=== PATIENT | female | born 1950 | race Native Hawaiian/Other Pacific Islander ===

== ENCOUNTER 2016-10-16 18:42 | Emergency (ER) | payer OTHER ==
[~2016-10-16] VITALS: Ht 157.5 cm; Wt 59.0 kg
[~2016-10-16 18:42] MED LIST: GLIM4TAB PO; JANUMET1 TAB PO; LEVO0.0218 PO; LYRICA150 MG PO; NEXIUM40 M1 PO; VENLAFAXINE75 M2 PO; VIGAMOX0.5 % OP; ZESTRIL40 MG OR
[2016-10-16 21:32] VITALS: BP 148/80; TEMP 98
== END 2016-10-16 21:32 | disposition home or self-care (01) ==
LOC: ED 18:42
PROC: 3E1CX8Z Irrigation of Eye using Irrigating Substance (ICD-10-PCS; principal; 2016-10-16)
DX: S05.02XA Injury of conjunctiva and corneal abrasion without foreign body, left eye, initial encounter (principal)
CPT/HCPCS: 99283; J1170; J2405

== ENCOUNTER 2017-06-03 15:42 | Emergency (ER) | payer OTHER ==
[~2017-06-03] VITALS: Ht 154.9 cm; Wt 58.1 kg
[2017-06-03 15:48] VITALS: TEMP 98.5
[2017-06-03 16:30] VITALS: BP 149/64
== END 2017-06-03 16:07 | disposition home or self-care (01) ==
LOC: ED 15:42
DX: K04.7 Periapical abscess without sinus (principal); R68.84 Jaw pain
CPT/HCPCS: 96372; 99282; J0696

== ENCOUNTER 2017-06-25 12:50 | Outpatient (CLI) | payer OTHER | END 2017-06-25 14:20 | disposition home or self-care (01) | LOC: MAMMO 12:50 | DX: N64.4 Mastodynia (principal) ==

== ENCOUNTER 2017-07-09 15:27 | Outpatient (CLI) | payer OTHER | END 2017-07-09 16:30 | disposition home or self-care (01) | LOC: RAD 15:27 | DX: R07.82 Intercostal pain (principal) ==

== ENCOUNTER 2017-10-12 10:47 | Emergency (ER) | payer OTHER ==
[~2017-10-12] VITALS: Ht 152.4 cm; Wt 58.1 kg
[2017-10-12 10:51] VITALS: TEMP 97.2
[2017-10-12 11:34] LABS: PLATELET COUNT 277 K/uL (152-353)
[2017-10-12 11:38] LABS: POTASSIUM 4.3 mmol/L (3.6-5.2); SODIUM 135 mmol/L (136-145)
[2017-10-12 11:45] LABS: PARTIAL THROMBOPLASTIN TIME 25.9 SECONDS (24.5-33.6)
[2017-10-12 14:19] VITALS: BP 151/76
== END 2017-10-12 14:19 | disposition home or self-care (01) ==
LOC: ED 10:47
DX: R07.89 Other chest pain (principal); K02.9 Dental caries, unspecified; T78.3XXA Angioneurotic edema, initial encounter
CPT/HCPCS: 36415; 80053; 82550; 84484; 85027; 85610; 85730; 93005; 96365; 96375; 99284; J0696; J1885

== ENCOUNTER 2017-10-26 19:10 | Inpatient (IN) | payer OTHER ==
[~2017-10-26] VITALS: Ht 152.4 cm; Wt 58.5 kg
[2017-10-26 19:20] VITALS: BP 138/67; TEMP 98.2
[2017-10-26] MEDS ORDERED: HYDR-3182 PO (19:29)
[2017-10-26] MEDS ORDERED: CELEXA10 MG PO (19:30)
[2017-10-26] MEDS ORDERED: NEURONTIN 100M100 MG PO (19:31)
[2017-10-26] MEDS ORDERED: INVOKANA100 MG PO (19:31)
[2017-10-26] MEDS ORDERED: TRAM50TA PO (19:32)
[2017-10-26 21:16] LABS: PLATELET COUNT 301 K/uL (152-353)
[2017-10-26 21:22] LABS: POTASSIUM 4.4 mmol/L (3.6-5.2)
[2017-10-26 23:14] VITALS: BP 166/77; TEMP 98.4
[2017-10-27] VITALS (7 sets, daily range): BP systolic 122–162; BP diastolic 66–87; TEMP 98–98.9; Ht 152.4 cm; Wt 58.5 kg
[2017-10-27 05:13] LABS: PLATELET COUNT 273 K/uL (152-353)
[2017-10-27 05:51] LABS: POTASSIUM 4.1 mmol/L (3.6-5.2)
[2017-10-28 04:00] VITALS: BP 155/79; TEMP 97.9
[2017-10-28 05:55] LABS: POTASSIUM 4.1 mmol/L (3.6-5.2)
[2017-10-28 06:09] LABS: PLATELET COUNT 293 K/uL (152-353)
[2017-10-28 08:00] VITALS: BP 155/81; TEMP 97.7
[2017-10-28 12:00] VITALS: BP 162/80; TEMP 97.9
[2017-10-28 16:00] VITALS: BP 153/76; TEMP 98.7
[2017-10-28 20:00] VITALS: BP 158/71; TEMP 99.2
[2017-10-29] VITALS: BP 167/73; TEMP 98.8
[2017-10-29 04:00] VITALS: BP 155/69; TEMP 98
[2017-10-29 07:39] VITALS: BP 171/77; TEMP 98.1
--- NOTE | 2017-10-29 10:57 | NUR ---
1035 PT LEFT WITH . NO CO AT THIS TIME. PT TEVIN Leahy COMPLTED ON LEVIMIR PEN. PT VERBALZUED UNDESTANDING. WILL CON'T TO MIQUELTR
== END 2017-10-29 10:40 | disposition home or self-care (01) | DRG 603 ==
LOC: ED 19:10 → MED/SURG 22:50
PROVIDERS: Family Medicine; ADMIT Specialist
DX: L03.116 Cellulitis of left lower limb (principal); E11.65 Type 2 diabetes mellitus with hyperglycemia; N28.9 Disorder of kidney and ureter, unspecified; R39.2 Extrarenal uremia; I10 Essential (primary) hypertension; F41.8 Other specified anxiety disorders; E03.8 Other specified hypothyroidism; K21.9 Gastro-esophageal reflux disease without esophagitis; B07.0 Plantar wart
CPT/HCPCS: 36415; 80053; 81000; 81002; 82948; 83605; 85027; 85651; 87040; 87205; 96365; 96366; 96367; 96372; 99284; J1650; J1815; J2543; J3490

== ENCOUNTER 2018-01-16 08:42 | Outpatient (CLI) | payer OTHER ==
[~2018-01-16 08:42] MED LIST changes: +CELEXA10 MG PO; +HYDR-3182 PO; +INVOKANA100 MG PO; +NEURONTIN 100M100 MG PO; +TRAM50TA PO
[2018-01-16 09:07] LABS: PLATELET COUNT 296 K/uL (152-353)
[2018-01-16 10:10] LABS: POTASSIUM 4.1 mmol/L (3.6-5.2)
== END 2018-01-16 23:31 | disposition home or self-care (01) ==
LOC: LABW 08:42
PROVIDERS: Physician Assistant
DX: E03.9 Hypothyroidism, unspecified (principal); E11.9 Type 2 diabetes mellitus without complications; I10 Essential (primary) hypertension
CPT/HCPCS: 36415; 80053; 80061; 83036; 84439; 84443; 85027

== ENCOUNTER 2019-01-02 13:53 | Outpatient (CLI) | payer OTHER ==
[2019-01-02 14:10] LABS: POTASSIUM 4.2 mmol/L (3.6-5.2)
[2019-01-02 14:12] LABS: PLATELET COUNT 307 K/uL (152-353)
== END 2019-01-02 19:45 | disposition home or self-care (01) ==
LOC: LAB 13:53
PROVIDERS: Physician Assistant
DX: E11.40 Type 2 diabetes mellitus with diabetic neuropathy, unspecified (principal); Z79.4 Long term (current) use of insulin; R35.8 Other polyuria; E55.9 Vitamin D deficiency, unspecified; E53.8 Deficiency of other specified B group vitamins; E03.8 Other specified hypothyroidism
CPT/HCPCS: 80053; 80061; 82306; 82607; 83735; 84439; 84443; 85027

== ENCOUNTER 2019-01-20 11:07 | Outpatient (CLI) | payer OTHER | END 2019-01-20 23:41 | disposition home or self-care (01) | LOC: RAD 11:07 | DX: E11.40 Type 2 diabetes mellitus with diabetic neuropathy, unspecified (principal); M54.2 Cervicalgia ==

== ENCOUNTER 2019-05-01 03:10 | Emergency (ER) | payer OTHER ==
[~2019-05-01] VITALS: Ht 152.4 cm; Wt 59.4 kg
[2019-05-01 05:17] VITALS: BP 184/82; TEMP 97.9
== END 2019-05-01 05:17 | disposition home or self-care (01) ==
LOC: ED 03:10
DX: S20.211A Contusion of right front wall of thorax, initial encounter (principal); W18.39XA Other fall on same level, initial encounter; Y92.89 Other specified places as the place of occurrence of the external cause
CPT/HCPCS: 96372; 99283; J1885

== ENCOUNTER 2020-02-24 18:03 | Emergency (ER) | payer OTHER ==
[~2020-02-24] VITALS: Ht 152.4 cm; Wt 58.1 kg
[2020-02-24 19:02] LABS: PLATELET COUNT 286 K/uL (152-353); POTASSIUM 4.6 mmol/L (3.6-5.2); SODIUM 142 mmol/L (136-145)
[2020-02-24 21:30] VITALS: BP 150/75; TEMP 98.6
== END 2020-02-24 21:30 | disposition still patient (30) ==
LOC: ED 18:03
PROVIDERS: Family Medicine
DX: S00.03XA Contusion of scalp, initial encounter (principal); S16.1XXA Strain of muscle, fascia and tendon at neck level, initial encounter; N39.0 Urinary tract infection, site not specified; W10.8XXA Fall (on) (from) other stairs and steps, initial encounter; Y92.511 Restaurant or cafe as the place of occurrence of the external cause
CPT/HCPCS: 36415; 80053; 81000; 84484; 85027; 87086; 87088; 93005; 96365; 96375; 99284; J0696; J2405

== ENCOUNTER 2020-10-04 08:54 | Outpatient (CLI) | payer OTHER ==
[2020-10-04 09:12] LABS: PLATELET COUNT 285 K/uL (152-353)
[2020-10-04 09:52] LABS: POTASSIUM 4.4 mmol/L (3.6-5.2)
== END 2020-10-04 22:10 | disposition home or self-care (01) ==
LOC: LABW 08:54
PROVIDERS: ATTEND Internal Medicine
DX: E11.9 Type 2 diabetes mellitus without complications (principal)
CPT/HCPCS: 36415; 80053; 80061; 81000; 82043; 83036; 84439; 84443; 85027

== ENCOUNTER 2021-02-15 17:03 | Outpatient (CLI) | payer OTHER | END 2021-02-15 20:42 | disposition home or self-care (01) | LOC: RAD 17:03 | PROVIDERS: ATTEND Internal Medicine | DX: R07.89 Other chest pain (principal) ==

== ENCOUNTER 2021-02-16 08:56 | Outpatient (CLI) | payer OTHER ==
[2021-02-16 09:27] LABS: PLATELET COUNT 309 K/uL (152-353)
[2021-02-16 09:38] LABS: POTASSIUM 3.7 mmol/L (3.6-5.2)
== END 2021-02-16 23:29 | disposition home or self-care (01) ==
LOC: LABW 08:56
PROVIDERS: ATTEND Internal Medicine
DX: E11.9 Type 2 diabetes mellitus without complications (principal); R82.998 Other abnormal findings in urine
CPT/HCPCS: 36415; 80053; 80061; 81000; 82043; 82570; 83036; 84439; 84443; 85027; 87077; 87086; 87088; 87186

== ENCOUNTER 2021-09-23 15:44 | Outpatient (CLI) | payer OTHER ==
[2021-09-23 18:30] LABS: PLATELET COUNT 323 K/uL (152-353)
[2021-09-23 18:49] LABS: POTASSIUM 4.1 mmol/L (3.6-5.2)
== END 2021-09-23 20:07 | disposition home or self-care (01) ==
LOC: LAB 15:44
PROVIDERS: ATTEND Internal Medicine
DX: E11.9 Type 2 diabetes mellitus without complications (principal)
CPT/HCPCS: 80053; 80061; 83036; 84439; 84443; 85027

== ENCOUNTER 2021-12-29 17:55 | Emergency (ER) | payer OTHER ==
[~2021-12-29] VITALS: Ht 152.4 cm; Wt 54.9 kg
[2021-12-29 19:10] VITALS: BP 123/71; TEMP 97.9
== END 2021-12-29 19:15 | disposition home or self-care (01) ==
LOC: ED 17:55
DX: M54.2 Cervicalgia (principal); R51.9 Headache, unspecified; W01.198A Fall on same level from slipping, tripping and stumbling with subsequent striking against other object, initial encounter; Y92.098 Other place in other non-institutional residence as the place of occurrence of the external cause
CPT/HCPCS: 99283

== ENCOUNTER 2022-02-13 09:06 | Outpatient (CLI) | payer OTHER ==
[2022-02-13 09:35] LABS: POTASSIUM 3.9 mmol/L (3.6-5.2)
== END 2022-02-13 19:09 | disposition home or self-care (01) ==
LOC: CT 09:06
PROVIDERS: ATTEND Internal Medicine
DX: E11.9 Type 2 diabetes mellitus without complications (principal); R10.9 Unspecified abdominal pain
CPT/HCPCS: 36415; 80053; 80061; 83036; Q9963

== ENCOUNTER 2022-04-06 10:35 | Outpatient (CLI) | payer OTHER | END 2022-04-06 20:51 | disposition home or self-care (01) | LOC: RAD 10:35 | PROVIDERS: ATTEND Internal Medicine | DX: R09.1 Pleurisy (principal) ==

== ENCOUNTER 2022-06-12 15:21 | Outpatient (CLI) | payer OTHER | END 2022-06-12 20:32 | disposition home or self-care (01) | LOC: MAMMO 15:21 | PROVIDERS: ATTEND Internal Medicine | DX: M81.0 Age-related osteoporosis without current pathological fracture (principal); Z12.31 Encounter for screening mammogram for malignant neoplasm of breast ==

== ENCOUNTER 2022-08-05 21:55 | Emergency (ER) | payer OTHER ==
[~2022-08-05] VITALS: Ht 152.4 cm; Wt 59.9 kg
[2022-08-05 22:05] VITALS: BP 146/79; TEMP 99.1
== END 2022-08-06 01:25 | disposition home or self-care (01) ==
LOC: ED 21:55
DX: S09.8XXA Other specified injuries of head, initial encounter (principal); S30.0XXA Contusion of lower back and pelvis, initial encounter; W01.190A Fall on same level from slipping, tripping and stumbling with subsequent striking against furniture, initial encounter; Y92.89 Other specified places as the place of occurrence of the external cause
CPT/HCPCS: 99283